=== PATIENT | female | born 1970 | race Caucasian/White ===

== ENCOUNTER 2018-05-21 20:17 | Emergency (ER) | payer OTHER ==
--- NOTE | 2018-05-21 21:45 | RAD REPORT ---
EXAM DESCRIPTION: RAD - Chest Single View - 05/21/2018 9:40 pm CLINICAL HISTORY: COUGH Chest pain. COMPARISON: No comparisons FINDINGS: Portable technique limits examination quality. The lungs are grossly clear. The heart is normal in size. No displaced fractures. IMPRESSION: No acute intrathoracic process suspected.
[2018-05-21] MEDS ORDERED: ALBUTEROL 2.5 MG/3 ML NEB SOL ONE (22:13)
[2018-05-21] MEDS ORDERED: IPRATROPIUM BROM 0.5MG/2.5ML ONE (22:13)
[2018-05-21 22:16] LABS: Arterial Blood Carboxyhemoglob 0.7 % (0-1.5); Blood Gas Oxyhemoglobin 94.4 % (94-97)
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
== END 2018-05-21 23:31 | disposition home or self-care (01) ==
LOC: ER 20:17
DX: J70.5 Respiratory conditions due to smoke inhalation (principal)
CPT/HCPCS: 71045; 82805; 99284

== ENCOUNTER → 2023-11-02 | Emergency (ER) | payer OTHER ==
[~2023-11-02] MED LIST: ASPIRIN 81 MG CHEWABLE TABLET ONE; FAMOTIDINE 20 MG/2 ML VIAL IV ONE; HYDROCODONE/CHLORPHEN 5 ML/OSYR ONE; IPRATROPIUM BROM 0.5MG/2.5ML ONE; LEVALBUTEROL 1.25 MG/3 ML NEB ONE; METHYLPREDNISOLONE 125 MG INJ ONE; NA CHLORIDE 0.9% 1,000 ML ONE; NA CHLORIDE 0.9% 500 ML ONE; predniSONE 20 MG TAB ONE
[2023-11-02 20:26] LABS: Absolute Lymphocytes (CBC) 1.3 K/uL (0.7-4.9); Hematocrit 39.9 % (36.0-45.0); Lymphocytes % 21.7 % (15.3-44.8); MCV 92.6 fL (80-100); MPV 7.2 fL (7.6-11.3); Platelets 223 thou/uL (152-406); RBC Red Blood Cell Count 4.31 M/uL (3.86-4.86)
[2023-11-02 20:31] LABS: Protime INR 1.05
[2023-11-02 21:07] LABS: Albumin 3.2 g/dL (3.4-5.0); Bilirubin Direct 0.5 mg/dL (0-0.2); Bilirubin Indirect, Calculated 0.3 mg/dL (0.2-0.8); Bilirubin Total 0.8 mg/dL (0.2-1.0); Magnesium 1.8 mg/dL (1.6-2.4); Potassium 3.9 mEq/L (3.5-5.1); Protein, Total 6.5 g/dL (6.4-8.2); Troponin High Sensitivity 3.2 pg/mL (<58.9)
[2023-11-02 21:35] LABS: Specific Gravity 1.009 (1.005-1.030); Urine Bacteria <20 /HPF (<20); Urine Bilirubin NEGATIVE (Negative); Urine Blood Negative (Negative); Urine Clarity Turbid (Clear); Urine Color Light-Yellow (Yellow); Urine Crystals Unidentified Few /HPF (None Seen); Urine Glucose NEGATIVE (Negative); Urine Protein NEGATIVE (Negative); Urine RBC <5 /HPF (None Seen); Urine Urobilinogen Normal (Normal)
--- NOTE | 2023-11-02 22:05 | RAD REPORT ---
EXAM DESCRIPTION: CT - Chest For Pe Angio - 11/02/2023 9:49 pm CLINICAL HISTORY: Chest pain COMPARISON: None. TECHNIQUE: Dynamically enhanced axial 3 mm thick images of the chest were obtained during administra tion of 100 mL Isovue 370 IV contrast. Coronal and oblique reconstruction images were generated and r eviewed. Exam utilizes a protocol for optimal evaluation of pulmonary arterial tree. Maximum intensity projections 3D imaging was utilized All CT scans are performed using dose optimization technique as appropriate and may include automated exposure control or mA/KV adjustment according to patient size. FINDINGS: A pulmonary embolus is not seen. A thoracic aortic aneurysm is not noted. A pleural effusion is not seen. A pericardial effusion is not seen. A lung consolidation is not present. IMPRESSION: Negative for a pulmonary embolism.
--- NOTE | 2023-11-02 22:06 | RAD REPORT ---
EXAM DESCRIPTION: Yasir Single View11/02/2023 8:57 pm CLINICAL HISTORY: Chest pain COMPARISON: 2017 FINDINGS: The lungs appear clear of acute infiltrate. The heart is normal size IMPRESSION: No acute abnormalities displayed
--- NOTE | 2023-11-02 22:15 | RAD REPORT ---
EXAM DESCRIPTION: CT - Abdomen Pelvis W Contrast - 11/02/2023 9:50 pm CLINICAL HISTORY: Abdominal pain COMPARISON: none. TECHNIQUE: Computed axial tomography of the abdomen pelvis was obtained. 100 cc Isovue-300 was admin istered intravenously. Oral contrast was not requested which limits evaluation of bowel and appendix All CT scans are performed using dose optimization technique as appropriate and may include automated exposure control or mA/KV adjustment according to patient size. FINDINGS: 1 centimeter low-density lesion right lobe liver. 1.5 centimeter low-density lesion near t he caudate lobe. Spleen, pancreas, adrenals and kidneys unremarkable Post surgical changes stomach. Cholecystectomy Hysterectomy. No adnexal mass. Small amount of free fluid within the pelvis. Moderate amount of stool within the colon IMPRESSION: Moderate amount stool within the colon Small low-density hepatic masses. One or both may represent hemangiomas. It is recommended that the p atient have followup ultrasound of the liver in 3 months
--- NOTE | 2023-11-02 23:09 | ER ---
Nurse's Notes [facility] Name: Joan Ware Age: 53 yrs Sex: Female : 1970 Arrival Date: 11/02/2023 Time: 19:35 Bed 2 Private MD: Diagnosis: Cough;Acute upper respiratory infection, unspecified;Acute bronchospasm;Abnormal findings on diagnostic imaging of liver and biliary tract-TWO HYPODENSE LIVER LESIONS;Abnormal level of enzymes in specimens from digestive organs and abdominal cavity-AST 1575, ALT 820 Presentation: 11/02 19:53 Chief complaint: Patient states: I feel shortness of breath and chest pain. Coronavirus ha1 screen: Vaccine status: Patient reports receiving the 1st dose of the Covid vaccine. watAgame. Ebola Screen: No symptoms or risks identified at this time. Initial Sepsis Screen: Does the patient meet any 2 criteria? No. Patient's initial sepsis screen is negative. Does the patient have a suspected source of infection? No. Patient's initial sepsis screen is negative. Risk Assessment: Do you want to hurt yourself or someone else? Patient reports no desire to harm self or others. Onset of symptoms was November 02, 2023. 19:53 Method Of Arrival: Ambulatory ha1 19:53 Acuity: CHAVA 3 ha1 Triage Assessment: 19:56 General: Appears uncomfortable, Behavior is calm, cooperative. Pain: Complains of pain ha1 in chest. Neuro: Level of Consciousness is awake, alert, obeys commands. Cardiovascular: Reports chest pain, Capillary refill Patient's skin is warm and dry. Rhythm is sinus rhythm. Respiratory: Reports shortness of breath at rest cough that is non-productive, dry, Airway is patent Respiratory effort is even, unlabored, Respiratory pattern is regular, symmetrical. Historical: - Allergies: 19:56 No Known Allergies; ha1 - PMHx: 19:56 None; ha1 - Immunization history:: Adult Immunizations up to date. - Social history:: Smoking status: Patient denies any tobacco usage or history of. Screenin:10 [facility] ED Fall Risk Assessment (Adult) History of falling in the last 3 months, la4 including since admission No falls in past 3 months (0 pts) Confusion or Disorientation No (0 pts) Intoxicated or Sedated No (0 pts) Impaired Gait No (0 pts) Mobility Assist Device Used No (0 pt) Altered Elimination No (0 pt) Score/Fall Risk Level 0 - 2 = Low Risk. Abuse screen: Denies threats or abuse. Denies injuries from another. Nutritional screening: No deficits noted. Tuberculosis screening: No symptoms or risk factors identified. Assessment: 20:10 Reassessment: Patient and/or family updated on plan of care and expected duration. Pain la4 level reassessed. Patient is alert, oriented x 3, equal unlabored respirations, skin warm/dry/pink. Pt changed into gown, pkaced on monitor, IV started by [employer] and sent to lab. No distress noted, will continue to monitor. Neuro: No deficits noted. [place] Agitation-Sedation Scale (RASS): 0 - Alert and Calm Level of Consciousness is awake, alert, obeys commands, Oriented to person, place, time. Cardiovascular: No deficits noted. Reports chest pain, Heart tones S1 S2 Capillary refill < 3 seconds is brisk fingers Patient's skin is warm and dry. Rhythm is sinus rhythm. Respiratory: No deficits noted. Airway is patent Respiratory effort is even, unlabored, Respiratory pattern is regular, symmetrical, Breath sounds are clear bilaterally. GI: No deficits noted. Abdomen is flat, Bowel sounds present X 4 quads. 20:55 Reassessment: No changes from previously documented assessment. Patient and/or family la4 updated on plan of care and expected duration. Pain level reassessed. Patient is alert, oriented x 3, equal unlabored respirations, skin warm/dry/pink. IVF started. CXR completed at this time. 21:34 Reassessment: Lab notified of add on lab of lipid profile. la4 22:19 Reassessment: Pt up to restroom without any staff assistance. nw1 Vital Signs: 03:10 BP 124 / 87; Pulse 63; Resp 18; Pulse Ox 100% ; la4 19:53 BP 115 / 102; Pulse 68; Resp 17 S; Temp 98.1; Pulse Ox 98% ; Weight 78.02 kg; Height 5 ha1 ft. 1 in. ; Pain 5/10; 20:10 BP 137 / 76; Pulse 66; Resp 18; Pulse Ox 100% ; la4 21:00 BP 124 / 87; Pulse 63; Resp 18; Pulse Ox 100% ; la4 22:00 BP 120 / 77; Pulse 59; Resp 18; Pulse Ox 99% ; la4 22:49 BP 117 / 79; Pulse 58; Resp 12; Pulse Ox 100% ; la4 23:00 BP 114 / 72; Pulse 67; Resp 18; Pulse Ox 100% ; la4 23:27 BP 114 / 72; Pulse 67; Resp 18; Pulse Ox 100% ; la4 19:53 Body Mass Index 32.50 (78.02 kg, 154.94 cm) ha1 19:53 Pain Scale: Adult ha1 Vitals: 20:10 Cardiac Rhythm Assessment Regular Sinus rhythm. la4 Jerica Coma Score: 20:10 Eye Response: spontaneous(4). Motor Response: obeys commands(6). Verbal Response: la4 oriented(5). Total: 15. 21:00 Eye Response: spontaneous(4). Motor Response: obeys commands(6). Verbal Response: la4 oriented(5). Total: 15. ED Course: 19:40 Patient arrived in ED. [email or web address] 19:45 Scar Orosco MD is Attending Physician. kyle 19:55 Triage completed. ha1 20:09 Mago Jimenez, RN is Primary Nurse. la4 20:10 Placed in gown. Bed in low position. Call light in reach. Side rails up X2. Provided la4 Education on: Plan of care. Client placed on continuous cardiac and pulse oximetry monitoring. NIBP monitoring applied. 20:10 No provider procedures requiring assistance completed. Inserted saline lock: 20 gauge la4 in left forearm, using aseptic technique. Blood collected. Patient maintains SpO2 saturation greater than 95% on room air. 20:17 Lipase Sent. la4 20:17 Basic Metabolic Panel Sent. la4 20:17 CBC with Diff Sent. la4 20:17 LFT's Sent. la4 20:17 Magnesium Sent. la4 20:17 NT PRO-BNP Sent. la4 20:17 PT-INR Sent. la4 20:17 Troponin HS Sent. la4 20:18 Report received from Sky HART. la4 20:59 XRAY Chest (1 view) In Process Unspecified. EDMS 21:21 Michael Reese MD is Referral Physician. kyle 21:50 CT Chest For PE Angio In Process Unspecified. EDMS 21:52 CT Abd/Pelvis - IV Contrast Only In Process Unspecified. EDMS 21:54 Patient moved back from NV. la4 23:05 Michael Reese MD is Referral Physician. kyle 23:10 Erica Ruiz MD is Referral Physician. kyle 23:11 Tylenol Level Sent. la4 23:11 Hepatitis Panel Sent. la4 23:50 IV discontinued, intact, bleeding controlled, No redness/swelling at site. Pressure la4 dressing applied. 11/03 00:32 Arm band placed on Patient placed in an exam room, on a stretcher. la4 Administered Medications: 11/02 20:55 Drug: NS 0.9% IV 500 ml IV at bolus once Route: IV; Rate: bolus; Site: left forearm; la4 22:50 Follow up: Response: No adverse reaction; No change in condition; IV Status: Completed la4 infusion; IV Intake: 500ml 20:55 Drug: NS 0.9% IV 1000 ml IV at 125 ml/hr continuous Route: IV; Rate: 125 ml/hr; Site: la4 left forearm; 22:51 Follow up: Response: No adverse reaction; No change in condition; IV Status: Completed la4 infusion; IV Intake: 1000ml 20:55 Drug: Aspirin PO Chewable Tablet 324 mg PO once; 81 mg tablets x 4 Route: PO; la4 22:50 Follow up: Response: No adverse reaction; No change in condition la4 21:20 CANCELLED (Duplicate Order): [id number] mg IVP once kyle 21:20 CANCELLED (Duplicate Order): rythhntwze29 mg PO once kyle 21:20 CANCELLED (Duplicate Order): levalbuterol2.5 mg Inhalation once kyle 21:20 CANCELLED (Duplicate Order): ipratropiumaerosol 0.5 mg Inhalation once kyle 21:20 CANCELLED (Duplicate Order): [id number] mg PO once kyle 21:21 CANCELLED (Duplicate Order): rocephin1 grams IV at per protocol once; Given slow IV kyle push per pharmacy instructions 21:46 Drug: NS 0.9% IV 1000 ml IV at 1 bolus Per protocol; 1000 mL bolus Route: IV; Rate: 1 nw1 bolus; Site: left forearm; 22:49 Follow up: BP 117 / 79; Pulse 58 bpm; Resp 12 bpm; Pulse Ox 100% ; Response: No adverse la4 reaction; No change in condition; IV Status: Completed infusion; IV Intake: 1000ml 23:10 Drug: MethylPrednisoLONE IVP 125 mg IVP once Route: IVP; Site: left forearm; la4 23:10 Drug: predniSONE PO 40 mg PO once Route: PO; la4 23:27 Follow up: BP 114 / 72; Pulse 67 bpm; Resp 18 bpm; Pulse Ox 100% la4 23:10 Drug: Levalbuterol Inhalation 2.5 mg Inhalation once Route: Inhalation; la4 23:27 Follow up: Response: No adverse reaction la4 23:10 Drug: Ipratropium Inhalation Aerosol 0.5 mg Inhalation once Route: Inhalation; la4 23:27 Follow up: Response: No adverse reaction la4 23:10 Drug: Famotidine IVP 20 mg IVP once; dilute with 10 mL 0.9% NaCl; give over 2 minutes la4 Route: IVP; Site: left forearm; 23:27 Follow up: Response: No adverse reaction; Marked relief of symptoms la4 23:16 Drug: Tussionex Pennkinetic ER PO Suspension 5 ml PO once Route: PO; la4 23:27 Follow up: Response: No adverse reaction; No change in condition la4 Medication: 20:10 VIS not applicable for this client. la4 Intake: 22:49 IV: 1000ml; Total: 1000ml. la4 22:50 IV: 500ml; Total: 1500ml. la4 22:51 IV: 1000ml; Total: 2500ml. la4 Outcome: 21:21 Discharge ordered by . kyle 23:09 Discharge ordered by MD. [facility] 23:30 Discharged to home ambulatory, with significant other, la4 23:30 Condition: stable 23:30 Discharge instructions given to patient, Instructed on discharge instructions, follow up and referral plans. Demonstrated understanding of instructions, follow-up care, 11/03 00:31 Patient left the ED. la4 Signatures: Dispatcher [employer] EDMD Scar Orosco MD MD cha Jeffries, Jennifer [email or web address] Marybel Quinn RN RN ha1 Mago Jimenez RN RN la4 Mercedes Patrick RN RN nw1
--- NOTE | 2023-11-02 23:09 | EDPHYS ---
Physician Documentation [facility] Name: Joan Ware Age: 53 yrs Sex: Female : 1970 Arrival Date: 11/02/2023 Time: 19:35 Bed 2 Private MD: BRIGHT Physician Scar Orosco HPI: 11/02 21:05 This 53 yrs old Female presents to ER via Ambulatory with complaints of Chest kyle Pain. 21:05 The patient or guardian reports chest pain that is located primarily in the anterior kyle chest wall, bilaterally. Onset: 3 day(s) ago. The pain does not radiate. Associated signs and symptoms: The patient has no apparent associated signs or symptoms. The chest pain is described as aching. Modifying factors: The symptoms are alleviated by remaining still, the symptoms are aggravated by breathing, cough, deep breath. Severity of pain: At its worst the pain was mild in the emergency department the pain is unchanged. The patient has not experienced similar symptoms in the past. Historical: - Allergies: 19:56 No Known Allergies; ha1 - PMHx: 19:56 None; ha1 - Immunization history:: Adult Immunizations up to date. - Social history:: Smoking status: Patient denies any tobacco usage or history of. ROS: 21:06 Constitutional: Negative for fever, chills, and weight loss, Eyes: Negative for injury, kyle pain, redness, and discharge, ENT: Negative for injury, pain, and discharge, Neck: Negative for injury, pain, and swelling, Abdomen/GI: Negative for abdominal pain, nausea, vomiting, diarrhea, and constipation, Back: Negative for injury and pain, : Negative for injury, bleeding, discharge, and swelling, MS/Extremity: Negative for injury and deformity, Skin: Negative for injury, rash, and discoloration, Neuro: Negative for headache, weakness, numbness, tingling, and seizure, Psych: Negative for depression, anxiety, suicide ideation, homicidal ideation, and hallucinations, Allergy/Immunology: Negative for hives, rash, and allergies, Endocrine: Negative for neck swelling, polydipsia, polyuria, polyphagia, and marked weight changes, Hematologic/Lymphatic: Negative for swollen nodes, abnormal bleeding, and unusual bruising, 21:06 Cardiovascular: Positive for chest pain, with cough, palpitations, 21:06 Respiratory: Positive for cough, shortness of breath, at rest. 21:06 MS/extremity: Negative for acute changes, injury or acute deformity, swelling, tenderness, Exam: 21:07 Constitutional: This is a well developed, well nourished patient who is awake, alert, kyle and in no acute distress. Head/Face: Normocephalic, atraumatic. Eyes: Pupils equal round and reactive to light, extra-ocular motions intact. Lids and lashes normal. Conjunctiva and sclera are non-icteric and not injected. Cornea within normal limits. Periorbital areas with no swelling, redness, or edema. ENT: Nares patent. No nasal discharge, no septal abnormalities noted. Tympanic membranes are normal and external auditory canals are clear. Oropharynx with no redness, swelling, or masses, exudates, or evidence of obstruction, uvula midline. Mucous membranes moist. Neck: Trachea midline, no thyromegaly or masses palpated, and no cervical lymphadenopathy. Supple, full range of motion without nuchal rigidity, or vertebral point tenderness. No Meningismus. Chest/axilla: Normal chest wall appearance and motion. Nontender with no deformity. No lesions are appreciated. Cardiovascular: Regular rate and rhythm with a normal S1 and S2. No gallops, murmurs, or rubs. Normal PMI, no JVD. No pulse deficits. Respiratory: Lungs have equal breath sounds bilaterally, clear to auscultation and percussion. No rales, rhonchi or wheezes noted. No increased work of breathing, no retractions or nasal flaring. Abdomen/GI: Soft, non-tender, with normal bowel sounds. No distension or tympany. No guarding or rebound. No evidence of tenderness throughout. Back: No spinal tenderness. No costovertebral tenderness. Full range of motion. Skin: Warm, dry with normal turgor. Normal color with no rashes, no lesions, and no evidence of cellulitis. MS/ Extremity: Pulses equal, no cyanosis. Neurovascular intact. Full, normal range of motion. Neuro: Awake and alert, GCS 15, oriented to person, place, time, and situation. Cranial nerves II-XII grossly intact. Motor strength 5/5 in all extremities. Sensory grossly intact. Cerebellar exam normal. Normal gait. Psych: Awake, alert, with orientation to person, place and time. Behavior, mood, and affect are within normal limits. 21:07 ECG was reviewed by the Attending Physician. 21:07 Musculoskeletal/extremity: DVT Exam: No signs of deep vein thrombosis. no pain, no swelling, no tenderness, negative Homans' sign noted on exam, no appreciated bluish discoloration, no erythema, no increased warmth, Vital Signs: 03:10 BP 124 / 87; Pulse 63; Resp 18; Pulse Ox 100% ; la4 19:53 BP 115 / 102; Pulse 68; Resp 17 S; Temp 98.1; Pulse Ox 98% ; Weight 78.02 kg; Height 5 ha1 ft. 1 in. ; Pain 5/10; 20:10 BP 137 / 76; Pulse 66; Resp 18; Pulse Ox 100% ; la4 21:00 BP 124 / 87; Pulse 63; Resp 18; Pulse Ox 100% ; la4 22:00 BP 120 / 77; Pulse 59; Resp 18; Pulse Ox 99% ; la4 22:49 BP 117 / 79; Pulse 58; Resp 12; Pulse Ox 100% ; la4 23:00 BP 114 / 72; Pulse 67; Resp 18; Pulse Ox 100% ; la4 23:27 BP 114 / 72; Pulse 67; Resp 18; Pulse Ox 100% ; la4 19:53 Body Mass Index 32.50 (78.02 kg, 154.94 cm) ha1 19:53 Pain Scale: Adult ha1 Jerica Coma Score: 20:10 Eye Response: spontaneous(4). Motor Response: obeys commands(6). Verbal Response: la4 oriented(5). Total: 15. 21:00 Eye Response: spontaneous(4). Motor Response: obeys commands(6). Verbal Response: la4 oriented(5). Total: 15. MDM: 19:45 Patient medically screened. [facility] 21:08 Antibiotic administration: The patient is discharged and will get outpatient [facility] antibiotics, Zithromax. Differential diagnosis: Anemia Bronchitis CHF exacerbation, Chronic Obstructive Pulmonary Disease abnormal EKG, acute myocardial infarction, acute pericarditis, anxiety, costochondritis, pancreatitis, pneumonia, pulmonary embolus, stable angina, unstable angina, Myocardial Infarction pneumonia, Pulmonary Embolism reactive airway disease, Unstable Angina. HEART Score: History: Slightly Suspicious (0), ECG: Normal (0), Age: > 45 and < 65 years (1), Risk Factors: No Risk Factors Known (0), Troponin: < or = 1 x Normal Limit (0). The patient was given aspirin in the Emergency Department. KEYONA Risk Score: TOTAL SCORE = 0. Immunization status: Influenza vaccine: Not up to date. Data reviewed: vital signs, nurses notes, lab test result(s), EKG, radiologic studies, CT scan, plain films. I considered the following discharge prescriptions or medication management in the emergency department Medications were administered in the Emergency Department. See MAR. Test considered but Not performed: Ultrasound NO 2 D ECHO. Care significantly affected by the following chronic conditions: NONE. 11/02 19:49 Order name: Basic Metabolic Panel; Complete Time: 22:44 [facility] 11/02 19:49 Order name: CBC with Diff; Complete Time: 21:01 [facility] 11/02 19:49 Order name: LFT's; Complete Time: 22:44 [facility] 11/02 19:49 Order name: Magnesium; Complete Time: 22:44 [facility] 11/02 19:49 Order name: NT PRO-BNP; Complete Time: 22:44 [facility] 11/02 19:49 Order name: PT-INR; Complete Time: 21:01 [facility] 11/02 19:49 Order name: Troponin HS; Complete Time: 22:44 [facility] 11/02 19:49 Order name: Lipase; Complete Time: 22:44 [facility] 11/02 19:49 Order name: Urinalysis w/ reflexes; Complete Time: 22:44 [facility] 11/02 21:36 Order name: Lipid Profile; Complete Time: 22:44 [facility] 11/02 22:48 Order name: Hepatitis Panel 11/02 22:48 Order name: Tylenol Level 11/02 19:49 Order name: XRAY Chest (1 view); Complete Time: 22:44 [facility] 11/02 21:04 Order name: CT Chest For PE Angio; Complete Time: 22:44 [facility] 11/02 21:21 Order name: CT Abd/Pelvis - IV Contrast Only; Complete Time: 22:44 [facility] 11/02 19:49 Order name: EKG; Complete Time: 19:50 11/02 19:49 Order name: Cardiac monitoring; Complete Time: 19:57 [facility] 11/02 19:49 Order name: EKG - Nurse/Tech; Complete Time: 19:57 11/02 19:49 Order name: IV Saline Lock; Complete Time: 20:16 [facility] 11/02 19:49 Order name: Labs collected and sent; Complete Time: 20: [facility] 11/02 19:49 Order name: O2 Per Protocol; Complete Time: [facility] 11/02 19:49 Order name: O2 Sat Monitoring; Complete Time: 20:16 [facility] EC:07 Rate is 69 beats/min. Rhythm is regular. QRS [place] is Normal. IN interval is normal. QRS kyle interval is normal. QT interval is normal. No Q waves. T waves are Normal. No ST changes noted. Clinical impression: Normal ECG and No evidence of ischemia. Interpreted by me. Reviewed by me. Administered Medications: 20:55 Drug: NS 0.9% IV 500 ml IV at bolus once Route: IV; Rate: bolus; Site: left forearm; la4 22:50 Follow up: Response: No adverse reaction; No change in condition; IV Status: Completed la4 infusion; IV Intake: 500ml 20:55 Drug: NS 0.9% IV 1000 ml IV at 125 ml/hr continuous Route: IV; Rate: 125 ml/hr; Site: la4 left forearm; 22:51 Follow up: Response: No adverse reaction; No change in condition; IV Status: Completed la4 infusion; IV Intake: 1000ml 20:55 Drug: Aspirin PO Chewable Tablet 324 mg PO once; 81 mg tablets x 4 Route: PO; la4 22:50 Follow up: Response: No adverse reaction; No change in condition la4 21:20 CANCELLED (Duplicate Order): [id number] mg IVP once kyle 21:20 CANCELLED (Duplicate Order): [id number] mg PO once kyle 21:20 CANCELLED (Duplicate Order): levalbuterol2.5 mg Inhalation once kyle 21:20 CANCELLED (Duplicate Order): ipratropiumaerosol 0.5 mg Inhalation once kyle 21:20 CANCELLED (Duplicate Order): [id number] mg PO once kyle 21:21 CANCELLED (Duplicate Order): rocephin1 grams IV at per protocol once; Given slow IV kyle push per pharmacy instructions 21:46 Drug: NS 0.9% IV 1000 ml IV at 1 bolus Per protocol; 1000 mL bolus Route: IV; Rate: 1 nw1 bolus; Site: left forearm; 22:49 Follow up: BP 117 / 79; Pulse 58 bpm; Resp 12 bpm; Pulse Ox 100% ; Response: No adverse la4 reaction; No change in condition; IV Status: Completed infusion; IV Intake: 1000ml 23:10 Drug: MethylPrednisoLONE IVP 125 mg IVP once Route: IVP; Site: left forearm; la4 23:10 Drug: predniSONE PO 40 mg PO once Route: PO; la4 23:27 Follow up: BP 114 / 72; Pulse 67 bpm; Resp 18 bpm; Pulse Ox 100% la4 23:10 Drug: Levalbuterol Inhalation 2.5 mg Inhalation once Route: Inhalation; la4 23:27 Follow up: Response: No adverse reaction la4 23:10 Drug: Ipratropium Inhalation Aerosol 0.5 mg Inhalation once Route: Inhalation; la4 23:27 Follow up: Response: No adverse reaction la4 23:10 Drug: Famotidine IVP 20 mg IVP once; dilute with 10 mL 0.9% NaCl; give over 2 minutes la4 Route: IVP; Site: left forearm; 23:27 Follow up: Response: No adverse reaction; Marked relief of symptoms la4 23:16 Drug: Tussionex Pennkinetic ER PO Suspension 5 ml PO once Route: PO; la4 23:27 Follow up: Response: No adverse reaction; No change in condition la4 Disposition Summary: 11/02/23 23:09 Discharge Ordered Notes: Location: Home(11/02/23 23:09) kyle Problem: new(11/02/23 23:09) kyle Symptoms: have improved(11/02/23 23:09) kyle Condition: Stable(11/02/23 23:09) kyle Diagnosis - Cough(11/02/23 23:09) kyle - Acute upper respiratory infection, unspecified(11/02/23 23:09) kyle - Acute bronchospasm(11/02/23 23:09) kyle - Abnormal findings on diagnostic imaging of liver and biliary tract - TWO HYPODENSE kyle LIVER LESIONS - Abnormal level of enzymes in specimens from digestive organs and abdominal cavity - kyle AST 1575, ALT 820 Followup: kyle - With: Private Physician - When: 2 - 3 days - Reason: Re-evaluation by your physician Followup: kyle - With: Michael Reese MD - When: 2 - 3 days - Reason: Recheck today's complaints, Re-evaluation by your physician Followup: kyle - With: Erica Ruiz MD - When: 2 - 3 days - Reason: Recheck today's complaints, Re-evaluation by your physician Discharge Instructions: - Discharge Summary Sheet kyle - Upper Respiratory Infection, Adult kyle - Cool Mist Vaporizer kyle - Upper Respiratory Infection, Adult, [id number] kyle - Cough, Adult, [id number] kyle - Cough, Adult kyle Forms: - Medication Reconciliation Form kyle - Thank You Letter kyle - Antibiotic Education kyle - Prescription Opioid Use kyle - Patient Portal Instructions kyle - Leadership Thank You Letter kyle Prescriptions: - albuterol sulfate 90 mcg/actuation Inhalation HFA Aerosol Inhaler - inhale 2 inhalation INHALATION route every 6 hours as needed for shortness of kyle breath or wheezing; 1 unit; Refills: 0, Product Selection Permitted - Pepcid 20 mg Oral tablet - take 1 tablet ORAL route every 12 hours for 21 days; 42 tablet; Refills: 0, kyle Product Selection Permitted - Guaifenesin AC 10-100 mg/5 mL Oral liquid - take 7.5 milliliter ORAL route every 6 hours As needed; 180 milliliter; kyle Refills: 0, Product Selection Permitted - Zithromax 500 mg Oral Tablet - take 1 tablet ORAL route once daily for 5 days; 5 tablet; Refills: 0, Product kyle Selection Permitted Signatures: Dispatcher [employer] EDMS Scar Orosco MD MD cha Ayala, Heidy RN RN ha1 Mago Jimenez RN RN la4 Mercedes Patrick RN RN nw1 Corrections: (The following items were deleted from the chart) 21:20 21:04 MethylPrednisoLONE IVP 125 mg IVP once ordered. [facility] 21:20 21:04 predniSONE PO 40 mg PO once ordered. [facility] 21:20 21:04 Levalbuterol Inhalation 2.5 mg Inhalation once ordered. [facility] 21:20 21:04 Ipratropium Inhalation Aerosol 0.5 mg Inhalation once ordered. [facility] 21:20 21:06 AZITHromycin PO 500 mg PO once ordered. [facility] 21:21 21:04 Rocephin IV 1 grams IV at per protocol once; Given slow IV push per pharmacy kyle instructions ordered. kyle 21:22 21:21 Home kyle wright 21:22 21:21 new kyle wright 21:22 21:21 have improved kyle wright 21:22 21:21 Stable kyle kyle 21:22 21:21 Cough [facility] 21:22 21:21 Acute upper respiratory infection, unspecified [facility] : 21:21 Acute bronchospasm [facility] 21:36 21:22 LIPID PROFILE+C.LAB.BRZ ordered. EDMS EDMS : 21: Abdomen Limited+US.RAD.BRZ ordered. EDMS EDMS
[2023-11-03 01:52] VITALS: BP 114/72; TEMP 98.1; O2SAT 100
[2023-11-04 06:00] LABS: Hepatitis B Core IgM Nonreactive (Nonreactive); Hepatitis B surface AG Interp. Nonreactive (Nonreactive); Hepatitis C Virus Ab Nonreactive (Nonreactive)
--- NOTE | 2023-11-07 13:46 | EKG ---
Test Date: 2023-11-02 Test Time: 19:48:11 Boxing Instructor: IQRA MEASUREMENT RESULTS: Intervals: Rate: 69 NE: 144 QRSD: 82 QT: 390 QTc: 417 [place]: P: 76 NE: 144 QRS: 82 T: 69 INTERPRETIVE STATEMENTS: Normal sinus rhythm Normal ECG No previous ECG available for comparison Electronically Signed On 11-07-23 13:27:56 MEDICAL OFFICE REPRESENTATIVE by Mehran Spicer
== END ==
LOC: ER 19:35
DX: J06.9 Acute upper respiratory infection, unspecified (principal); R05.9 Cough, unspecified; J98.01 Acute bronchospasm; R93.2 Abnormal findings on diagnostic imaging of liver and biliary tract; R85.0 Abnormal level of enzymes in specimens from digestive organs and abdominal cavity; R06.02 Shortness of breath; R07.89 Other chest pain
CPT/HCPCS: 93005; 85025; 81001; 80048; 36415; 83735; 85610; 80061; 80076; 84484; 83690; 83880; 80074; 71275; 74177; 71045; 80143; Q9967; J7512; J7614; J7644; J2930; J7040; J7030 ×2